=== PATIENT | female | born 1930 | race Caucasian/White ===

== ENCOUNTER 2018-06-21 02:09 | Emergency (ER) | payer MEDICARE, BC ==
[~2018-06-21] VITALS: Ht 149.9 cm; Wt 55.9 kg
[~2018-06-21 02:09] MED LIST: ASPI81TA46 PO; ATOR40TA3 PO; DEXT1DRO9 OP; FLUD0.1T PO; FURO-150 PO; GABA-532 PO; HYDR12.5 PO; LEVO112T25 PO; OMEP20TA5 PO; OXYC-150 PO; OXYC20TA71 PO; POTA10TA19 PO; SOLI5TAB2 PO; VAL5T PO
[2018-06-21] MEDS ORDERED: morphine 4 MG/ML inj SYRINge IV PRN (03:20)
[2018-06-21] MEDS ORDERED: normal saline 1000ML IV soln IVB ONE (03:20)
[2018-06-21] MEDS ORDERED: ondansetron/PF 4mg/2ml inj IV ONE (03:20)
[2018-06-21 03:46] LABS: BASOPHILS % (AUTO) 0.5 % (0-1); EOSINOPHILS # (AUTO) 0.2 X10'3 (0-0.9); EOSINOPHILS % (AUTO) 2.6 % (0-6); HEMATOCRIT 34.2 % (35.0-45.0); HEMOGLOBIN 11.7 g/dl (12.0-16.0); LYMPHOCYTES # (AUTO) 1.6 X10'3 (1.1-4.8); MEAN CORPUSCULAR HEMOGLOBIN 30.5 PG (27.0-31.0); MEAN CORPUSCULAR HGB CONC 34.3 % (33.0-36.5); MONOCYTES # (AUTO) 0.6 X10'3 (0-0.9); MONOCYTES % (AUTO) 8.9 % (2-12); NEUTROPHILS # (AUTO) 4.6 X10'3 (1.8-7.7); PLATELET COUNT 178 X10'3 (140-440); RED BLOOD COUNT 3.84 X10'6 (4.20-5.60); RED CELL DISTRIBUTION WIDTH 17.9 % (11.5-14.5); WHITE BLOOD COUNT 7.1 X10'3 (4.5-11.0)
[2018-06-21 04:00] LABS: ALANINE AMINOTRANSFERASE 27 U/L (12-78); ALBUMIN 3.5 G/DL (3.4-5.0); ALKALINE PHOSPHATASE 131 IU/L (46-116); ANION GAP 5 (8-16); ASPARTATE AMINO TRANSFERASE 22 U/L (10-37); BILIRUBIN,TOTAL 0.6 MG/DL (0.1-1.0); BLOOD UREA NITROGEN 16 MG/DL (7-18); BUN/CREATININE RATIO 16.2 (6.6-38.0); CHLORIDE 96 MMOL/L (99-107); CREATININE 0.99 MG/DL (0.40-0.90); GLUCOSE 100 MG/DL (70-104); POTASSIUM 3.9 MMOL/L (3.5-5.1); SODIUM 131 MMOL/L (135-145); TOTAL CARBON DIOXIDE 29.9 MMOL/L (24-32); eGFR 53 ML/MIN
[2018-06-21] MEDS ORDERED: iohexol 300mg/ml 100ml inj. ONE (04:09)
[2018-06-21 05:53] VITALS: BP 164/104
== END 2018-06-21 06:02 | disposition home or self-care (01) ==
LOC: ER 02:09 → EEVIPCON 02:09 → ER 06:02
DX: S70.02XA Contusion of left hip, initial encounter (principal); I12.9 Hypertensive chronic kidney disease with stage 1 through stage 4 chronic kidney disease, or unspecified chronic kidney disease; N18.9 Chronic kidney disease, unspecified; F03.90 Unspecified dementia, unspecified severity, without behavioral disturbance, psychotic disturbance, mood disturbance, and anxiety; I48.91 Unspecified atrial fibrillation; I25.10 Atherosclerotic heart disease of native coronary artery without angina pectoris; K21.9 Gastro-esophageal reflux disease without esophagitis; G89.29 Other chronic pain; F41.9 Anxiety disorder, unspecified; D64.9 Anemia, unspecified; F32.9 Major depressive disorder, single episode, unspecified; Z90.49 Acquired absence of other specified parts of digestive tract; Z90.710 Acquired absence of both cervix and uterus; Z95.1 Presence of aortocoronary bypass graft; Z88.8 Allergy status to other drugs, medicaments and biological substances; Z79.82 Long term (current) use of aspirin; Z79.899 Other long term (current) drug therapy; Z87.440 Personal history of urinary (tract) infections; W19.XXXA Unspecified fall, initial encounter; Y93.01 Activity, walking, marching and hiking; Y92.002 Bathroom of unspecified non-institutional (private) residence as the place of occurrence of the external cause; Y99.8 Other external cause status
CPT/HCPCS: 36415; 72193; 73502; 80053; 85025; 96374; 96375; 99285; J2270; J2405; J7030; Q9967

== ENCOUNTER 2018-12-19 22:31 | Emergency (ER) | payer MEDICARE, BC ==
[~2018-12-19] VITALS: Ht 162.6 cm; Wt 72.7 kg
[2018-12-19] MEDS ORDERED: normal saline 1000ML IV soln IVB ONE (22:35)
[2018-12-19] MEDS ORDERED: glycopyrrolate 0.2mg/ml inj IV ONE (22:35)
[2018-12-19] MEDS ORDERED: metoprolol tartrate 50mg tablet PO ONE (22:45)
[2018-12-19 23:27] LABS: BASOPHILS % (AUTO) 0.4 % (0-1); EOSINOPHILS # (AUTO) 0.2 X10'3 (0-0.9); HEMATOCRIT 36.2 % (35.0-45.0); HEMOGLOBIN 12.1 g/dl (12.0-16.0); LYMPHOCYTES # (AUTO) 1.1 X10'3 (1.1-4.8); LYMPHOCYTES % (AUTO) 14.7 % (21-51); MEAN CORPUSCULAR HEMOGLOBIN 30.3 PG (27.0-31.0); MEAN CORPUSCULAR HGB CONC 33.4 g/dL (33.0-36.5); MEAN CORPUSCULAR VOLUME 90.7 FL (78-98); MONOCYTES # (AUTO) 0.5 X10'3 (0-0.9); MONOCYTES % (AUTO) 6.8 % (2-12); NEUTROPHILS # (AUTO) 5.9 X10'3 (1.8-7.7); NEUTROPHILS % (AUTO) 76.1 % (42-75); PLATELET COUNT 177 X10'3 (140-440); RED CELL DISTRIBUTION WIDTH 14.4 % (11.5-14.5); WHITE BLOOD COUNT 7.7 X10'3 (4.5-11.0)
[2018-12-19 23:35] LABS: ALANINE AMINOTRANSFERASE 24 U/L (12-78); ALBUMIN 4.1 G/DL (3.4-5.0); ALBUMIN/GLOBULIN RATIO 1.1 (1.1-1.5); ALKALINE PHOSPHATASE 157 IU/L (46-116); ANION GAP 7 (8-16); ASPARTATE AMINO TRANSFERASE 25 U/L (10-37); BILIRUBIN,TOTAL 0.5 MG/DL (0.1-1.0); BLOOD UREA NITROGEN 14 MG/DL (7-18); BUN/CREATININE RATIO 15.4 (6.6-38.0); CHLORIDE 90 MMOL/L (99-107); CREATININE 0.91 MG/DL (0.40-0.90); GLUCOSE 100 MG/DL (70-104); LIPASE 87 U/L (73-393); POTASSIUM 4.5 MMOL/L (3.5-5.1); SODIUM 126 MMOL/L (135-145); eGFR 58 ML/MIN
[2018-12-20] MEDS ORDERED: LOPE-144 PO (00:43)
[2018-12-20 01:10] VITALS: BP 202/98
[2018-12-20 01:20] LABS: CLARITY,URINE CLEAR (Clear); COLOR,URINE YELLOW (Yellow); GLUCOSE, URINE NEGATIVE (Neg); KETONES,URINE NEGATIVE (Neg); LEUKOCYTE ESTERASE ,URINE NEGATIVE (Neg); NITRITES, URINE NEGATIVE (Neg); OCCULT BLOOD,URINE NEGATIVE (Neg); PH,URINE 7.5 (4.8-8.0); PROTEIN,URINE NEGATIVE (Neg); UROBILINOGEN,URINE 0.2 E.U/dL (0.2-1.0)
[2018-12-20 01:26] LABS: UA COLLECTION TYPE STRAIGHT CATH
--- NOTE | 2018-12-20 01:38 | NUR ---
Pt status provide Lynn Moreno, which included edmd recommendation that daily fluid intake be monitored for possible over hydration based on labs. Tiffanie is not an RN, none available. She will forward information to RN/MD Friday AM.
== END 2018-12-20 03:15 | disposition home or self-care (01) ==
LOC: ER 22:31 → EEVIPCON 22:31 → ER 12-20 03:15
DX: R19.7 Diarrhea, unspecified (principal); R10.30 Lower abdominal pain, unspecified; I25.10 Atherosclerotic heart disease of native coronary artery without angina pectoris; I48.91 Unspecified atrial fibrillation; I10 Essential (primary) hypertension; K21.9 Gastro-esophageal reflux disease without esophagitis; F41.9 Anxiety disorder, unspecified; F32.9 Major depressive disorder, single episode, unspecified; M81.0 Age-related osteoporosis without current pathological fracture; G89.29 Other chronic pain; F03.90 Unspecified dementia, unspecified severity, without behavioral disturbance, psychotic disturbance, mood disturbance, and anxiety; Z90.49 Acquired absence of other specified parts of digestive tract; Z88.8 Allergy status to other drugs, medicaments and biological substances; Z88.5 Allergy status to narcotic agent; Z79.899 Other long term (current) drug therapy; Z79.82 Long term (current) use of aspirin; Z90.710 Acquired absence of both cervix and uterus; Z95.1 Presence of aortocoronary bypass graft; Z98.62 Peripheral vascular angioplasty status
CPT/HCPCS: 36415; 80053; 81003; 83690; 85025; 96361; 96374; 99284; J7030; J3490

== ENCOUNTER 2019-09-21 16:30 | Inpatient (IN) | payer MEDICARE, BC ==
[~2019-09-21] VITALS: Ht 162.6 cm; Wt 57.7 kg
[~2019-09-21 16:30] MED LIST changes: +ASPI81TA44 PO; -ASPI81TA46 PO; -ATOR40TA3 PO; +ATOR40TA7 PO; +LOPE-144 PO
[2019-09-21 18:58] LABS: BASOPHILS % (AUTO) 0.8 % (0-1); EOSINOPHILS # (AUTO) 0.2 X10'3 (0-0.9); EOSINOPHILS % (AUTO) 3.4 % (0-6); HEMATOCRIT 37.2 % (35.0-45.0); HEMOGLOBIN 12.7 g/dl (12.0-16.0); LYMPHOCYTES # (AUTO) 1.2 X10'3 (1.1-4.8); MEAN CORPUSCULAR HGB CONC 34.1 g/dL (33.0-36.5); MEAN CORPUSCULAR VOLUME 90.8 FL (78-98); MEAN PLATELET VOLUME 7.9 FL (7.4-10.4); MONOCYTES # (AUTO) 0.5 X10'3 (0-0.9); NEUTROPHILS # (AUTO) 4.6 X10'3 (1.8-7.7); NEUTROPHILS % (AUTO) 69.8 % (42-75); PLATELET COUNT 148 X10'3 (140-440); RED BLOOD COUNT 4.09 X10'6 (4.20-5.60); RED CELL DISTRIBUTION WIDTH 14.5 % (11.5-14.5); WHITE BLOOD COUNT 6.6 X10'3 (4.5-11.0)
[2019-09-21 19:15] LABS: ALANINE AMINOTRANSFERASE 19 U/L (12-78); ALBUMIN 3.7 G/DL (3.4-5.0); ALKALINE PHOSPHATASE 134 IU/L (46-116); ANION GAP 5 (8-16); ASPARTATE AMINO TRANSFERASE 19 U/L (10-37); BILIRUBIN,TOTAL 0.5 MG/DL (0.1-1.0); BLOOD UREA NITROGEN 15 MG/DL (7-18); CALCIUM 9.3 MG/DL (8.5-10.1); CHLORIDE 97 MMOL/L (99-107); CREATININE 0.88 MG/DL (0.40-0.90); GLUCOSE 98 MG/DL (70-104); POTASSIUM 4.3 MMOL/L (3.5-5.1); SODIUM 131 MMOL/L (135-145); TOTAL CARBON DIOXIDE 28.9 MMOL/L (24-32); TOTAL PROTEIN 7.4 G/DL (6.4-8.2); eGFR 61 ML/MIN
[2019-09-21 19:23] LABS: MAGNESIUM 1.9 MG/DL (1.5-2.4)
[2019-09-21] MEDS ORDERED: furosemide 10 MG/1 ML 10ml inj IV ONE (19:50)
[2019-09-21] MEDS ORDERED: cloNIDine 0.1 mg tablet PO ONE (20:40)
[2019-09-21] MEDS ORDERED: ARIP5TAB14 PO (22:20)
[2019-09-21] MEDS ORDERED: DULO-31 PO (22:20)
[2019-09-21] MEDS ORDERED: SERT25TA PO (22:20)
[2019-09-21] MEDS ORDERED: CELE100C98 (22:20)
[2019-09-21] MEDS ORDERED: TRAZ-219 PO (22:20)
[2019-09-21] MEDS ORDERED: DOCU100C38 PO (22:20)
[2019-09-21] MEDS ORDERED: acetaminophen 325mg tablet PO PRN (22:55)
[2019-09-21] MEDS ORDERED: magnesium 2GM in 50ml NS 50 ML IV PRN (22:55)
[2019-09-21] MEDS ORDERED: mag hydrox/Alum hydrox/simeth 30ml oral suspension PO PRN (22:55)
[2019-09-21] MEDS ORDERED: potassium Cl 20 mEq SR tablet PO PRN ×2 (22:55)
[2019-09-21] MEDS ORDERED: potassium CL 10mEq/100ml bag 100 ML IV PRN ×2 (22:55)
[2019-09-21] MEDS ORDERED: ondansetron/PF 4mg/2ml inj IV PRN (22:55)
[2019-09-21] MEDS ORDERED: magnesium 4gm in 100ml NS 100 ML IV PRN (22:55)
[2019-09-22 00:25] VITALS: BP 151/79
[2019-09-22] MEDS: amLODIPine 5mg tablet PO SCH ×2 (00:46→08:00)
[2019-09-22] MEDS: oxyCODONE/APAP 10/325mg tablet PO SCH ×6 (00:46→20:22)
[2019-09-22] MEDS ORDERED: polyvinyl alcohol ophthalmic drops 15ml bottle EACHEYE PRN (03:40)
[2019-09-22] MEDS ORDERED: loperamide 2mg capsule PO PRN (03:45)
[2019-09-22] MEDS ORDERED: bisacodyl 10mg suppository rectal RC PRN (04:40)
[2019-09-22 06:00] VITALS: BP 96/54
[2019-09-22 06:23] LABS: BASOPHILS # (AUTO) 0.1 X10'3 (0-0.2); BASOPHILS % (AUTO) 0.7 % (0-1); EOSINOPHILS # (AUTO) 0.3 X10'3 (0-0.9); EOSINOPHILS % (AUTO) 3.9 % (0-6); HEMATOCRIT 37.5 % (35.0-45.0); HEMOGLOBIN 12.8 g/dl (12.0-16.0); LYMPHOCYTES # (AUTO) 1.4 X10'3 (1.1-4.8); LYMPHOCYTES % (AUTO) 18.9 % (21-51); MEAN CORPUSCULAR HEMOGLOBIN 30.8 PG (27.0-31.0); MEAN CORPUSCULAR HGB CONC 34.2 g/dL (33.0-36.5); MEAN CORPUSCULAR VOLUME 89.9 FL (78-98); MONOCYTES # (AUTO) 0.8 X10'3 (0-0.9); NEUTROPHILS % (AUTO) 65.5 % (42-75); PLATELET COUNT 165 X10'3 (140-440); RED BLOOD COUNT 4.18 X10'6 (4.20-5.60); RED CELL DISTRIBUTION WIDTH 14.8 % (11.5-14.5); WHITE BLOOD COUNT 7.6 X10'3 (4.5-11.0)
--- NOTE | 2019-09-22 06:35 | NUR ---
Patient in room ORTHO 4014. I have received report from Bita and had the opportunity to ask questions and assume patient care.
--- NOTE | 2019-09-22 06:37 | NUR ---
Problems reprioritized. Patient report given, questions answered & plan of care reviewed with ADIA WALDRON.
[2019-09-22 06:56] LABS: ALANINE AMINOTRANSFERASE 19 U/L (12-78); ALBUMIN 3.5 G/DL (3.4-5.0); ALKALINE PHOSPHATASE 123 IU/L (46-116); ANION GAP 8 (8-16); ASPARTATE AMINO TRANSFERASE 20 U/L (10-37); BILIRUBIN,TOTAL 0.4 MG/DL (0.1-1.0); BLOOD UREA NITROGEN 19 MG/DL (7-18); BUN/CREATININE RATIO 17.1 (6.6-38.0); CALCIUM 9.1 MG/DL (8.5-10.1); CHLORIDE 97 MMOL/L (99-107); CREATININE 1.11 MG/DL (0.40-0.90); GLUCOSE 106 MG/DL (70-104); MAGNESIUM 1.7 MG/DL (1.5-2.4); POTASSIUM 3.8 MMOL/L (3.5-5.1); SODIUM 134 MMOL/L (135-145); TOTAL CARBON DIOXIDE 28.8 MMOL/L (24-32); TOTAL PROTEIN 6.9 G/DL (6.4-8.2); eGFR 46 ML/MIN
[2019-09-22] MEDS: K and/or MAG REPLACEMENT MC SCH ×2 (08:00→20:00)
[2019-09-22] MEDS ORDERED: gabapentin 300mg capsule PO SCH (08:00)
[2019-09-22] MEDS ORDERED: docusate sod 100mg capsule PO SCH (08:00)
[2019-09-22] MEDS: docusate sod 100mg capsule PO SCH ×2 (08:39→20:20)
[2019-09-22] MEDS: celeCOXIB 100mg capsule PO SCH ×2 (08:39→20:21)
[2019-09-22] MEDS: aspirin 81mg tablet.DR PO SCH (08:40)
[2019-09-22] MEDS: duloxetine 30mg CAPSULE.DR PO SCH (08:40)
[2019-09-22] MEDS: levoTHYROXINE 112mcg tablet PO SCH (08:41)
[2019-09-22] MEDS: sertraline 25mg tablet PO SCH (08:41)
[2019-09-22] MEDS: enoxaparin 40mg/0.4ml syringe SQ SCH (08:42)
[2019-09-22 10:00] VITALS: BP 104/63
[2019-09-22] MEDS: gabapentin 300mg capsule PO SCH ×2 (12:50→20:21)
[2019-09-22 14:00] VITALS: BP 116/70
[2019-09-22] MEDS: amox tr/potassium clavulanate 500mg/125mg TAB PO SCH (17:57)
[2019-09-22 18:00] VITALS: BP 141/78
--- NOTE | 2019-09-22 18:21 | NUR ---
Problems reprioritized. Patient report given, questions answered & plan of care reviewed with Flaquita.
--- NOTE | 2019-09-22 20:30 | NUR ---
pt's grandson at bedside. asked about discharge time - MD note states possibly tomorrow.
[2019-09-22] MEDS ORDERED: traZODone 50mg tablet PO SCH (21:00)
[2019-09-22 22:00] VITALS: BP 80/41
--- NOTE | 2019-09-22 22:30 | NUR ---
noted pt's map low. BP was taken on upper arm when pt turned on side.
[2019-09-23] VITALS: BP 92/50
--- NOTE | 2019-09-23 00:03 | NUR ---
pt very sleepy. wouldn't waken to voice or shaking. woke when repositioned. responded with open eyes and able to shake head no for pain. placed on oxygen b/c noted pt apnea. unsure if pt uses cpap at home. sats 98 on 2L. noted blood pressure map over 60.
[2019-09-23 02:55] VITALS: BP 106/66
[2019-09-23] MEDS: oxyCODONE/APAP 10/325mg tablet PO SCH ×3 (04:00→08:05)
--- NOTE | 2019-09-23 05:30 | NUR ---
found MAR from [facility] that patient takes percocet 10 - 1 tab qAM and BID PRN. will report to days to have them change orders. pt awake and talking this am.
[2019-09-23 06:00] VITALS: BP 131/69
--- NOTE | 2019-09-23 06:31 | NUR ---
Patient in room ORTHO 4014A. I have received report from EBONY CHEEK and had the opportunity to ask questions and assume patient care.
[2019-09-23] MEDS: K and/or MAG REPLACEMENT MC SCH (07:03)
[2019-09-23] MEDS: celeCOXIB 100mg capsule PO SCH (08:00)
[2019-09-23] MEDS: duloxetine 30mg CAPSULE.DR PO SCH (08:01)
[2019-09-23] MEDS: docusate sod 100mg capsule PO SCH (08:01)
[2019-09-23] MEDS: aspirin 81mg tablet.DR PO SCH (08:02)
[2019-09-23] MEDS: amLODIPine 5mg tablet PO SCH (08:03)
[2019-09-23] MEDS: gabapentin 300mg capsule PO SCH (08:03)
[2019-09-23] MEDS: levoTHYROXINE 112mcg tablet PO SCH (08:05)
[2019-09-23] MEDS: sertraline 25mg tablet PO SCH (08:05)
[2019-09-23] MEDS: amox tr/potassium clavulanate 500mg/125mg TAB PO SCH (08:06)
[2019-09-23] MEDS: enoxaparin 40mg/0.4ml syringe SQ SCH (08:09)
[2019-09-23 10:00] VITALS: BP 118/64
[2019-09-23] MEDS ORDERED: NOR5T PO (11:29)
[2019-09-23] MEDS ORDERED: AMOX1TAB15 PO (11:29)
--- NOTE | 2019-09-23 13:41 | NUR ---
called report to montse at [facility]. pt lien. Janine here to transport pt.
== END 2019-09-23 13:26 | disposition home health service (06) | DRG 304 ==
LOC: EEVIPCON 16:31 → ER 16:31 → ED HOLD 22:54 → ORTHO 4S 09-22 00:15 → OBSVTOIN 09-22 09:30
PROVIDERS: ADMIT Family Medicine; ATTEND Family Medicine
DX: I16.0 Hypertensive urgency (principal); I50.33 Acute on chronic diastolic (congestive) heart failure; E87.1 Hypo-osmolality and hyponatremia; E03.9 Hypothyroidism, unspecified; E78.5 Hyperlipidemia, unspecified; I25.10 Atherosclerotic heart disease of native coronary artery without angina pectoris; I48.0 Paroxysmal atrial fibrillation; Z96.649 Presence of unspecified artificial hip joint; I13.0 Hypertensive heart and chronic kidney disease with heart failure and stage 1 through stage 4 chronic kidney disease, or unspecified chronic kidney disease; G89.29 Other chronic pain; K21.9 Gastro-esophageal reflux disease without esophagitis; N18.9 Chronic kidney disease, unspecified; G30.9 Alzheimer's disease, unspecified; F02.80 Dementia in other diseases classified elsewhere, unspecified severity, without behavioral disturbance, psychotic disturbance, mood disturbance, and anxiety; K04.7 Periapical abscess without sinus; M54.9 Dorsalgia, unspecified; F41.8 Other specified anxiety disorders; M41.9 Scoliosis, unspecified; M81.0 Age-related osteoporosis without current pathological fracture; N31.9 Neuromuscular dysfunction of bladder, unspecified; Z80.8 Family history of malignant neoplasm of other organs or systems; Z82.49 Family history of ischemic heart disease and other diseases of the circulatory system; Z87.440 Personal history of urinary (tract) infections; Z90.710 Acquired absence of both cervix and uterus; Z95.1 Presence of aortocoronary bypass graft; Z88.8 Allergy status to other drugs, medicaments and biological substances; Z90.49 Acquired absence of other specified parts of digestive tract; Z95.5 Presence of coronary angioplasty implant and graft; Z79.899 Other long term (current) drug therapy; Z79.82 Long term (current) use of aspirin
CPT/HCPCS: 36415; 71045; 74018; 80053; 83735; 83880; 84484; 85025; 87081; 93005; 93306; 96374; 97161; 97530; 99285; G0378; J1650; J1940

== ENCOUNTER 2019-09-26 10:34 | Inpatient (IN) | payer MEDICARE, BC ==
[~2019-09-26] VITALS: Ht 175.3 cm; Wt 70.0 kg
[~2019-09-26 10:34] MED LIST changes: +AMOX1TAB15 PO; +ARIP5TAB14 PO; +CELE100C98; +DOCU100C38 PO; +DULO-31 PO; +NOR5T PO; +SERT25TA PO; +TRAZ-219 PO
--- NOTE | 2019-09-26 10:46 | NUR ---
pt to ct with rn
[2019-09-26 11:43] LABS: BASOPHILS # (AUTO) 0.1 X10'3 (0-0.2); BASOPHILS % (AUTO) 0.8 % (0-1); EOSINOPHILS # (AUTO) 0.2 X10'3 (0-0.9); EOSINOPHILS % (AUTO) 3.3 % (0-6); HEMOGLOBIN 14.5 g/dl (12.0-16.0); LYMPHOCYTES # (AUTO) 1.4 X10'3 (1.1-4.8); LYMPHOCYTES % (AUTO) 20.1 % (21-51); MEAN CORPUSCULAR HEMOGLOBIN 30.6 PG (27.0-31.0); MEAN CORPUSCULAR HGB CONC 33.8 g/dL (33.0-36.5); MEAN CORPUSCULAR VOLUME 90.7 FL (78-98); MEAN PLATELET VOLUME 8.3 FL (7.4-10.4); MONOCYTES # (AUTO) 0.5 X10'3 (0-0.9); MONOCYTES % (AUTO) 7.8 % (2-12); NEUTROPHILS # (AUTO) 4.7 X10'3 (1.8-7.7); PLATELET COUNT 183 X10'3 (140-440); RED BLOOD COUNT 4.74 X10'6 (4.20-5.60); RED CELL DISTRIBUTION WIDTH 14.6 % (11.5-14.5); WHITE BLOOD COUNT 6.9 X10'3 (4.5-11.0)
--- NOTE | 2019-09-26 11:45 | NUR ---
PER STROKE NURSE WE ARE NOT GOING TO PROCEED WITH TPA AT THIS TIME. STROKE 1 CALLED OFF
[2019-09-26 11:48] LABS: PARTIAL THROMBOPLASTIN TIME 25 SECONDS (22-32)
[2019-09-26 11:50] LABS: ALANINE AMINOTRANSFERASE 33 U/L (12-78); ALBUMIN 3.9 G/DL (3.4-5.0); ALKALINE PHOSPHATASE 126 IU/L (46-116); ANION GAP 9 (8-16); ASPARTATE AMINO TRANSFERASE 39 U/L (10-37); BILIRUBIN,TOTAL 0.9 MG/DL (0.1-1.0); BLOOD UREA NITROGEN 25 MG/DL (7-18); BUN/CREATININE RATIO 23.4 (6.6-38.0); CALCIUM 9.5 MG/DL (8.5-10.1); CHLORIDE 100 MMOL/L (99-107); CREATININE 1.07 MG/DL (0.40-0.90); GLUCOSE 100 MG/DL (70-104); POTASSIUM 4.2 MMOL/L (3.5-5.1); SODIUM 135 MMOL/L (135-145); TOTAL CARBON DIOXIDE 26.4 MMOL/L (24-32); eGFR 48 ML/MIN
[2019-09-26 11:53] LABS: TROPONIN I < 0.04 NG/ML (0.0-0.05)
[2019-09-26] MEDS ORDERED: ondansetron/PF 4mg/2ml inj IV PRN (12:05)
[2019-09-26] MEDS ORDERED: magnesium 4gm in 100ml NS 100 ML IV PRN (12:05)
[2019-09-26] MEDS ORDERED: magnesium hydroxide 30ml (MOM) UD suspension PO PRN (12:05)
[2019-09-26] MEDS ORDERED: potassium CL 10mEq/100ml bag 100 ML IV PRN ×2 (12:05)
[2019-09-26] MEDS ORDERED: magnesium 2GM in 50ml NS 50 ML IV PRN (12:05)
[2019-09-26] MEDS ORDERED: diphenhydrAMINE 25mg capsule PO PRN (12:05)
[2019-09-26] MEDS ORDERED: diphenhydrAMINE 50 mg/ml inj IV PRN (12:05)
[2019-09-26] MEDS ORDERED: metoclopramide 5 mg/ml inj IV PRN (12:05)
[2019-09-26] MEDS ORDERED: bisacodyl 10mg suppository rectal RC PRN (12:05)
[2019-09-26] MEDS ORDERED: magnesium Cl slow-release 64mg tablet PO PRN (12:05)
[2019-09-26] MEDS ORDERED: potassium Cl 20 mEq SR tablet PO PRN ×2 (12:05)
[2019-09-26] MEDS ORDERED: acetaminophen 325mg tablet PO PRN ×2 (12:05)
[2019-09-26] MEDS ORDERED: mag hydrox/Alum hydrox/simeth 30ml oral suspension PO PRN (12:05)
[2019-09-26] MEDS ORDERED: acetaminophen 650mg rectal suppository RC PRN (12:05)
[2019-09-26] MEDS: normal saline 1000ml 1,000 ML IV SCH ×2 (12:36→22:02)
[2019-09-26] MEDS: aspirin 81mg tablet.DR PO SCH (12:43)
[2019-09-26 14:40] VITALS: BP 187/93
--- NOTE | 2019-09-26 14:52 | NUR ---
Received pt. to 4010a via gurney to bed. Pt. oriented to her room and checked [facility]
[2019-09-26] MEDS ORDERED: MULT-933 PO (16:41)
[2019-09-26] MEDS ORDERED: CHOL100046 PO (16:42)
--- NOTE | 2019-09-26 16:45 | NUR ---
PAGER ID: [phone] MESSAGE: Naomi Mayo 4010A : please address medication reconciliation. thank you! [email or web address] [phone]
[2019-09-26] MEDS ORDERED: AMLO5TAB PO (17:23)
[2019-09-26] MEDS ORDERED: AMOX1TAB15 PO (17:23)
[2019-09-26] MEDS ORDERED: LOPE2TAB25 PO (17:25)
[2019-09-26] MEDS ORDERED: polyvinyl alcohol ophthalmic drops 15ml bottle EACHEYE PRN (17:50)
[2019-09-26 18:00] VITALS: BP 185/106
--- NOTE | 2019-09-26 18:12 | NUR ---
Problems reprioritized. Patient report given, questions answered & plan of care reviewed with ADIA Bolden.
--- NOTE | 2019-09-26 19:03 | NUR ---
RECEIVED REPORT FROM REDD CHEEK AND ASSUMED PATIENT CARE
[2019-09-26] MEDS: oxyCODONE/APAP 10/325mg tablet PO SCH (19:12)
[2019-09-26] MEDS ORDERED: docusate sod 100mg capsule PO SCH (20:00)
[2019-09-26] MEDS: K and/or MAG REPLACEMENT MC SCH (20:00)
[2019-09-26] MEDS ORDERED: temazepam 15mg capsule PO PRN (21:00)
[2019-09-26] MEDS: celeCOXIB 100mg capsule PO SCH (21:06)
[2019-09-26] MEDS: gabapentin 300mg capsule PO SCH (21:06)
[2019-09-26] MEDS: docusate sod 100mg capsule PO SCH (21:07)
[2019-09-26] MEDS: traZODone 50mg tablet PO SCH (21:10)
[2019-09-26 22:00] VITALS: BP 160/91
[2019-09-27] VITALS (7 sets, daily range): BP systolic 125–182; BP diastolic 65–94
[2019-09-27] MEDS: oxyCODONE/APAP 10/325mg tablet PO SCH ×6 (00:26→20:06)
[2019-09-27] MEDS: normal saline 1000ml 1,000 ML IV SCH ×2 (00:28→16:54)
--- NOTE | 2019-09-27 06:26 | NUR ---
REPORT GIVEN TO BORIS CHEEK
[2019-09-27 06:35] LABS: HEMATOCRIT 38.4 % (35.0-45.0); MEAN CORPUSCULAR VOLUME 91.2 FL (78-98); MEAN PLATELET VOLUME 8.1 FL (7.4-10.4); PLATELET COUNT 164 X10'3 (140-440); RED BLOOD COUNT 4.21 X10'6 (4.20-5.60); RED CELL DISTRIBUTION WIDTH 14.2 % (11.5-14.5); WHITE BLOOD COUNT 6.2 X10'3 (4.5-11.0)
--- NOTE | 2019-09-27 06:37 | NUR ---
Patient in room ORTHO 4010. I have received report from ADIA Bolden and had the opportunity to ask questions and assume patient care.
[2019-09-27 07:00] LABS: ALBUMIN 3.2 G/DL (3.4-5.0); ANION GAP 9 (8-16); BLOOD UREA NITROGEN 22 MG/DL (7-18); BUN/CREATININE RATIO 23.4 (6.6-38.0); CALCIUM 8.8 MG/DL (8.5-10.1); CHLORIDE 103 MMOL/L (99-107); CHOL/HDL RATIO 1.9 (0.00-4.99); CHOLESTEROL 131 MG/DL (0-200); CREATININE 0.94 MG/DL (0.40-0.90); GLUCOSE 85 MG/DL (70-104); HDL CHOLESTEROL 69 MG/DL (35-60); LDL CHOLESTEROL 51 MG/DL (50-100); MAGNESIUM 1.9 MG/DL (1.5-2.4); PHOSPHORUS 2.9 MG/DL (2.3-4.5); POTASSIUM 3.6 MMOL/L (3.5-5.1); SODIUM 136 MMOL/L (135-145); TOTAL CARBON DIOXIDE 24.4 MMOL/L (24-32); TRIGLYCERIDES 52 MG/DL (20-135); eGFR 56 ML/MIN
[2019-09-27] MEDS ORDERED: aspirin 81mg tablet.DR PO SCH (08:00)
[2019-09-27] MEDS: K and/or MAG REPLACEMENT MC SCH ×2 (08:00→20:00)
[2019-09-27] MEDS: gabapentin 300mg capsule PO SCH ×3 (08:55→20:05)
[2019-09-27] MEDS: amLODIPine 5mg tablet PO SCH (08:55)
[2019-09-27] MEDS: celeCOXIB 100mg capsule PO SCH ×2 (08:56→20:05)
[2019-09-27] MEDS: docusate sod 100mg capsule PO SCH ×2 (08:56→20:05)
[2019-09-27] MEDS: sertraline 25mg tablet PO SCH (08:57)
[2019-09-27] MEDS: duloxetine 30mg CAPSULE.DR PO SCH (08:57)
[2019-09-27] MEDS: levoTHYROXINE 112mcg tablet PO SCH (08:59)
[2019-09-27] MEDS: aspirin 81mg tablet.DR PO SCH (08:59)
--- NOTE | 2019-09-27 18:25 | NUR ---
Problems reprioritized. Patient report given, questions answered & plan of care reviewed with ADIA Bolden.
--- NOTE | 2019-09-27 18:30 | NUR ---
RECEIVED REPORT FROM BORIS CHEEK AND ASSUMED PATIENT CARE
[2019-09-27] MEDS: traZODone 50mg tablet PO SCH (20:05)
[2019-09-28] MEDS: oxyCODONE/APAP 10/325mg tablet PO SCH ×3 (00:01→10:01)
[2019-09-28 02:00] VITALS: BP 133/71
[2019-09-28] MEDS: normal saline 1000ml 1,000 ML IV SCH (05:14)
[2019-09-28 06:00] VITALS: BP 170/91
[2019-09-28 06:16] LABS: HEMATOCRIT 38.9 % (35.0-45.0); HEMOGLOBIN 13.3 g/dl (12.0-16.0); MEAN CORPUSCULAR HEMOGLOBIN 31.1 PG (27.0-31.0); MEAN CORPUSCULAR HGB CONC 34.1 g/dL (33.0-36.5); MEAN CORPUSCULAR VOLUME 91.2 FL (78-98); MEAN PLATELET VOLUME 8.1 FL (7.4-10.4); PLATELET COUNT 145 X10'3 (140-440); RED BLOOD COUNT 4.27 X10'6 (4.20-5.60); RED CELL DISTRIBUTION WIDTH 14.3 % (11.5-14.5); WHITE BLOOD COUNT 4.7 X10'3 (4.5-11.0)
[2019-09-28 06:17] LABS: ALBUMIN 3.5 G/DL (3.4-5.0); ANION GAP 5 (8-16); BLOOD UREA NITROGEN 18 MG/DL (7-18); BUN/CREATININE RATIO 19.8 (6.6-38.0); CALCIUM 8.9 MG/DL (8.5-10.1); CHLORIDE 104 MMOL/L (99-107); CREATININE 0.91 MG/DL (0.40-0.90); GLUCOSE 89 MG/DL (70-104); MAGNESIUM 1.8 MG/DL (1.5-2.4); PHOSPHORUS 2.8 MG/DL (2.3-4.5); POTASSIUM 3.5 MMOL/L (3.5-5.1); SODIUM 137 MMOL/L (135-145); eGFR 58 ML/MIN
--- NOTE | 2019-09-28 07:00 | NUR ---
Patient in room ORTHO 4010. I have received report from neha Akers and had the opportunity to ask questions and assume patient care.
[2019-09-28] MEDS: K and/or MAG REPLACEMENT MC SCH (08:00)
[2019-09-28] MEDS: celeCOXIB 100mg capsule PO SCH (09:50)
[2019-09-28] MEDS: docusate sod 100mg capsule PO SCH (09:51)
[2019-09-28] MEDS: duloxetine 30mg CAPSULE.DR PO SCH (09:51)
[2019-09-28] MEDS: aspirin 81mg tablet.DR PO SCH (09:52)
[2019-09-28] MEDS: gabapentin 300mg capsule PO SCH ×2 (09:52→13:01)
[2019-09-28] MEDS: levoTHYROXINE 112mcg tablet PO SCH (09:52)
[2019-09-28] MEDS: amLODIPine 5mg tablet PO SCH (09:52)
[2019-09-28] MEDS: sertraline 25mg tablet PO SCH (10:01)
[2019-09-28 11:00] VITALS: BP 143/75
[2019-09-28] MEDS ORDERED: BISA10SU11 RC (12:47)
[2019-09-28] MEDS ORDERED: MAGN400O6 PO (12:47)
--- NOTE | 2019-09-28 13:32 | NUR ---
Problems reprioritized. Patient report given, questions answered & plan of care reviewed with brian walton rn .
--- NOTE | 2019-09-28 13:33 | NUR ---
reviewed discharge orders,meds and need for f/u appt with brian Gustafson rn. sl dc'd ,site albin, tele dc'd.,pt dc'd with all belongings via w/c with brian morales
== END 2019-09-28 13:30 | disposition home health service (06) | DRG 69 ==
LOC: ER 10:34 → EEVIPCON 12:02 → ED HOLD 12:02 → ORTHO 4S 14:30
PROVIDERS: ADMIT Family Medicine; ATTEND Family Medicine
DX: G45.9 Transient cerebral ischemic attack, unspecified (principal); I50.32 Chronic diastolic (congestive) heart failure; I13.0 Hypertensive heart and chronic kidney disease with heart failure and stage 1 through stage 4 chronic kidney disease, or unspecified chronic kidney disease; I48.19 Other persistent atrial fibrillation; G50.0 Trigeminal neuralgia; E03.9 Hypothyroidism, unspecified; F03.90 Unspecified dementia, unspecified severity, without behavioral disturbance, psychotic disturbance, mood disturbance, and anxiety; I25.10 Atherosclerotic heart disease of native coronary artery without angina pectoris; K08.89 Other specified disorders of teeth and supporting structures; Z96.649 Presence of unspecified artificial hip joint; F32.9 Major depressive disorder, single episode, unspecified; F41.9 Anxiety disorder, unspecified; G89.29 Other chronic pain; K21.9 Gastro-esophageal reflux disease without esophagitis; M54.9 Dorsalgia, unspecified; M81.0 Age-related osteoporosis without current pathological fracture; N18.9 Chronic kidney disease, unspecified; Z66 Do not resuscitate; Z79.890 Hormone replacement therapy; Z79.899 Other long term (current) drug therapy; Z90.710 Acquired absence of both cervix and uterus; Z95.1 Presence of aortocoronary bypass graft; Z88.8 Allergy status to other drugs, medicaments and biological substances; Z90.49 Acquired absence of other specified parts of digestive tract
CPT/HCPCS: 36415; 70450; 70486; 70544; 70551; 71045; 80048; 80053; 80061; 82948; 83735; 84100; 84443; 84484; 85025; 85027; 85610; 85730; 87081; 92508; 93005; 93880; 97116; 97161; 97530; 99285; G0378; J7030

== ENCOUNTER 2019-12-31 23:04 | Emergency (ER) | payer MEDICARE, BC ==
[~2019-12-31] VITALS: Ht 162.6 cm; Wt 64.5 kg
[~2019-12-31 23:04] MED LIST changes: +AMLO5TAB PO; -AMOX1TAB15 PO; -ATOR40TA7 PO; +BISA10SU11 RC; +CHOL100046 PO; -FLUD0.1T PO; -FURO-150 PO; -HYDR12.5 PO; -LOPE-144 PO; +MAGN400O6 PO; +MULT-933 PO; -NOR5T PO; -OMEP20TA5 PO; -OXYC20TA71 PO; -POTA10TA19 PO; -SOLI5TAB2 PO; -TRAZ-219 PO; +TRAZ-256 PO; -VAL5T PO
[2020-01-01 00:43] LABS: BASOPHILS # (AUTO) 0.1 X10'3 (0-0.2); BASOPHILS % (AUTO) 1.7 % (0-1); EOSINOPHILS # (AUTO) 0.4 X10'3 (0-0.9); EOSINOPHILS % (AUTO) 5.6 % (0-6); HEMATOCRIT 33.1 % (35.0-45.0); HEMOGLOBIN 11.3 g/dl (12.0-16.0); LYMPHOCYTES % (AUTO) 15.4 % (21-51); MEAN CORPUSCULAR HEMOGLOBIN 30.3 PG (27.0-31.0); MEAN CORPUSCULAR VOLUME 89.3 FL (78-98); MEAN PLATELET VOLUME 7.4 FL (7.4-10.4); MONOCYTES # (AUTO) 0.5 X10'3 (0-0.9); NEUTROPHILS # (AUTO) 4.7 X10'3 (1.8-7.7); NEUTROPHILS % (AUTO) 70.3 % (42-75); PLATELET COUNT 173 X10'3 (140-440); RED BLOOD COUNT 3.71 X10'6 (4.20-5.60); RED CELL DISTRIBUTION WIDTH 15.6 % (11.5-14.5); WHITE BLOOD COUNT 6.8 X10'3 (4.5-11.0)
[2020-01-01 01:08] LABS: ALANINE AMINOTRANSFERASE 14 U/L (12-78); ALBUMIN 2.9 G/DL (3.4-5.0); ALBUMIN/GLOBULIN RATIO 0.7 (1.1-1.5); ALKALINE PHOSPHATASE 115 IU/L (46-116); ANION GAP 8 (8-16); ASPARTATE AMINO TRANSFERASE 17 U/L (10-37); BILIRUBIN,TOTAL 0.4 MG/DL (0.1-1.0); BLOOD UREA NITROGEN 25 MG/DL (7-18); BUN/CREATININE RATIO 21.6 (6.6-38.0); CALCIUM 8.6 MG/DL (8.5-10.1); CHLORIDE 104 MMOL/L (99-107); CREATININE 1.16 MG/DL (0.40-0.90); GLUCOSE 93 MG/DL (70-104); POTASSIUM 4.6 MMOL/L (3.5-5.1); SODIUM 137 MMOL/L (135-145); TOTAL CARBON DIOXIDE 25.5 MMOL/L (24-32); TOTAL PROTEIN 6.8 G/DL (6.4-8.2); eGFR 44 ML/MIN
[2020-01-01 01:22] LABS: PARTIAL THROMBOPLASTIN TIME 27 SECONDS (22-32)
[2020-01-01] MEDS ORDERED: AZIT250T29 PO (01:41)
--- NOTE | 2020-01-01 02:00 | NUR ---
CALLED YAYA CARGO FOR PT RIDE BACK TO [facility] AT [phone]
[2020-01-01 02:38] VITALS: BP 134/109
== END 2020-01-01 02:39 | disposition home or self-care (01) ==
LOC: ER 23:05
DX: J06.9 Acute upper respiratory infection, unspecified (principal); I25.10 Atherosclerotic heart disease of native coronary artery without angina pectoris; I48.91 Unspecified atrial fibrillation; K21.9 Gastro-esophageal reflux disease without esophagitis; I10 Essential (primary) hypertension; G89.29 Other chronic pain; F41.9 Anxiety disorder, unspecified; F32.9 Major depressive disorder, single episode, unspecified; F03.90 Unspecified dementia, unspecified severity, without behavioral disturbance, psychotic disturbance, mood disturbance, and anxiety; M81.0 Age-related osteoporosis without current pathological fracture; Z90.49 Acquired absence of other specified parts of digestive tract; Z90.710 Acquired absence of both cervix and uterus; Z95.1 Presence of aortocoronary bypass graft
CPT/HCPCS: 71045; 80053; 83880; 84484; 85025; 85610; 85730; 93005; 99285

== ENCOUNTER 2020-01-31 01:36 | Emergency (ER) | payer MEDICARE, BC ==
[~2020-01-31] VITALS: Ht 162.6 cm; Wt 63.6 kg
[2020-01-31 02:55] VITALS: BP 129/86
== END 2020-01-31 02:57 | disposition home or self-care (01) ==
LOC: ER 01:37
DX: S40.011A Contusion of right shoulder, initial encounter (principal); R79.89 Other specified abnormal findings of blood chemistry; M12.80 Other specific arthropathies, not elsewhere classified, unspecified site; F03.90 Unspecified dementia, unspecified severity, without behavioral disturbance, psychotic disturbance, mood disturbance, and anxiety; I48.91 Unspecified atrial fibrillation; I25.10 Atherosclerotic heart disease of native coronary artery without angina pectoris; I10 Essential (primary) hypertension; K21.9 Gastro-esophageal reflux disease without esophagitis; G89.29 Other chronic pain; M81.0 Age-related osteoporosis without current pathological fracture; F41.9 Anxiety disorder, unspecified; F32.9 Major depressive disorder, single episode, unspecified; Z98.61 Coronary angioplasty status; Z90.49 Acquired absence of other specified parts of digestive tract; Z95.1 Presence of aortocoronary bypass graft; Z90.710 Acquired absence of both cervix and uterus; Z98.890 Other specified postprocedural states; Z88.8 Allergy status to other drugs, medicaments and biological substances; Z79.82 Long term (current) use of aspirin; Z79.899 Other long term (current) drug therapy; W06.XXXA Fall from bed, initial encounter; Y93.89 Activity, other specified; Y92.003 Bedroom of unspecified non-institutional (private) residence as the place of occurrence of the external cause; Y99.8 Other external cause status
CPT/HCPCS: 73030; 99284